=== PATIENT | female | born 1955 | race Two or more races ===

== ENCOUNTER → 2025-05-31 | Outpatient (CLI) | payer MEDICARE | END | disposition home or self-care (01) | LOC: CT 09:31 | PROVIDERS: ATTEND Internal Medicine Cardiovascular Disease | DX: G93.89 Other specified disorders of brain (principal); J32.8 Other chronic sinusitis; H74.8X2 Other specified disorders of left middle ear and mastoid; I10 Essential (primary) hypertension; H53.2 Diplopia; R42 Dizziness and giddiness ==